=== PATIENT | female | born 1960 | race Caucasian/White ===

== ENCOUNTER 2024-04-13 10:21 | Outpatient (AMB) | payer BC, SELFPAY ==
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
[2024-04-13 10:40] VITALS: BP 138/68; PULSE 101; RESP 16; O2SAT 96; BMI 39.1
== END 2024-04-13 10:56 | disposition home or self-care (01) ==
PROVIDERS: PCP Nurse Practitioner Primary Care; Visit Provider Anesthesiology
DX: I87.2 Venous insufficiency (chronic) (peripheral) (principal); G58.8 Other specified mononeuropathies
CPT/HCPCS: 99203

== ENCOUNTER → 2024-04-13 10:21 | Outpatient (BNVA) | payer BC, SELFPAY | PROVIDERS: PCP Nurse Practitioner Primary Care; Visit Provider Anesthesiology ==

== ENCOUNTER 2024-06-09 10:13 | Outpatient (AMB) | payer BC, SELFPAY ==
[2024-06-09 10:20] VITALS: BMI 39.1
--- NOTE | 2024-06-09 10:20 | MHC.OFFVIS ---
Vital Signs 06/09/24 10:20 Height 5 ft 2 in Weight 214 lb BMI 39.1 Intake Visit Reasons: VEGETABLE PICKER/ Pain Mngmnt referral for chronic Intake Note: Pain Vito referral for LE pain, has hx of Left LE ligation (chemical) and Left LE ablation. Accompanied by: Self / Same As Patient Allergies azithromycin Allergy (Verified 06/09/24 10:31) Unknown naproxen [From Aleve] Allergy (Verified 06/09/24 10:31) Unknown sertraline [From Zoloft] Allergy (Verified 06/09/24 10:31) Unknown aspirin Adverse Reaction (Mild, Verified 06/09/24 10:31) Diarrhea HPI HPI VEGETABLE PICKER/ Pain Mngmnt referral for chronic : Details: Very pleasant 63-year-old female patient presents for painful varicose veins. Complaints include pain over varicosities, swelling of lower extremities, cramping, fatigue, and heaviness of the lower extremities. 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 It is noted more so in right leg. Of note she has been a diabetic for more than 10 years Patient reports prior venous ablation and sclerotherapy by Dr. Phelps Patient denies any history of DVT/ PE. Patient denies any history of phlebitis. Trial of compression includes - [id number] They now present for vascular evaluation regarding their varicose veins. Review of Systems Const Reports as per HPI ENT Reports no additional complaints Card Denies chest pain, Denies chest pain at rest and Denies chest pain with activity Resp Denies chest congestion and Denies cough GI Reports no additional complaints Musc Details: pain over varicosities, aching of lower extremities, swelling, cramping, heaviness and tiredness, itching Denies abnormal gait Skin/Breast Reports pruritus and Denies wounds Neuro Reports no additional complaints and Denies abnormal gait Psych Denies no additional complaints Physical Exam Vital Signs: BMI result Body Mass Index 39.1 Const General: cooperative, healthy appearing and comfortable Orientation/consciousness: oriented to person, oriented to place and oriented to time Neck Carotids: no bruits Chest Chest palpation & inspection: normal inspection of the chest and normal palpation of entire chest wall Resp Effort & Inspection: normal respiratory effort and able to speak in complete sentences Cardio Rate: regular rate Heart sounds: S1 normal heart sound present and S2 normal heart sound present Peripheral pulses: Peripheral pulses 2+ throughout GI Inspection: Yes normal to inspection Skin Other: +2 edema, large rope-like varicosities greater than 4 mm CEAP Classification C4 - skin color changes Ep - Etiology Primary As - superficial veins P - reflux General skin exam: dry skin Neuro General: oriented to person, oriented to place and oriented to time Extrem Right lower extremity: full ROM, normal capillary refill and edema Left lower extremity: full ROM, normal capillary refill and edema Psych Mental Status: mental status grossly normal Assessment & Plan Assessment & Plan (1) Varicose veins of left lower extremity with inflammation: Code(s): I83.12 - Varicose veins of left lower extremity with inflammation Category: Medical Plan: In short, the patient has evidence of venous insufficiency. I have discussed the pathophysiology with the patient. In addition I have provided informational material regarding venous disease to the patient. We have discussed conservative measures including compression, elevation, and exercise. I have also provided a handout regarding appropriate use of compression stockings and where to purchase good compression stockings as well. I have taken the liberty of ordering venous insufficiency testing with the patient to better assess if there is any reflux in the status her previous ablation. They will follow up with me after testing. The patient had an opportunity to ask questions regarding the treatment plan. All questions were answered. Imaging studies, laboratory studies and physical exam results were discussed and reviewed in detail. No major barriers to understanding were identified. The patient expressed understanding and agreement with the above treatment plan. The patient is aware they should contact our office by phone for worsening of the current condition or the appearance of new symptoms. Thank you for allowing me to participate in the vascular care of this patient. If you have any questions or concerns regarding the treatment for the above condition please do not hesitate to contact me. The office telephone contact is [phone]. This note is constructed using voice recognition software. While every effort has been made to ensure accuracy, push bench operator helper errors may have been included. Thank you for allowing me to participate in the care of your patient. Yours sincerely, Faraz Brown MD, FACS, R.P.V.I. Orders: Orders US venous duplex LE BI 1 Week I83.12 - Varicose veins of left lower extremity with inflammation Coding Level of Care Code Est Pt Level 4 (43597) Diagnoses Varicose veins of left lower extremity with inflammation I83.12
== END 2024-06-09 10:58 | disposition home or self-care (01) ==
PROVIDERS: PCP Nurse Practitioner Primary Care; Visit Provider Surgery Vascular Surgery
DX: I83.12 Varicose veins of left lower extremity with inflammation (principal)
CPT/HCPCS: 99214

== ENCOUNTER → 2024-06-09 10:13 | Outpatient (BNVA) | payer BC, SELFPAY | PROVIDERS: PCP Nurse Practitioner Primary Care; Visit Provider Surgery Vascular Surgery ==

== ENCOUNTER 2024-06-20 12:54 | Outpatient (REF) | payer BC, SELFPAY ==
--- NOTE | ~2024-06-20 | US_ITS ---
EXAMINATION: US LOWER EXTREMITY VENOUS (REFLUX EXAM), BILATERAL CLINICAL INDICATION: Chronic venous insufficiency with lower extremity varicose veins. History of left great saphenous vein stripping COMPARISON: None. TECHNIQUE: Color flow triplex imaging and compression Doppler was performed to evaluate both the deep and the superficial systems bilaterally. To evaluate the superficial system, the examination was performed in the upright position. Color-flow Doppler ultrasound and compression ultrasound were utilized. In addition, maneuvers were utilized to demonstrate reflux. FINDINGS: 1. DEEP VENOUS ULTRASOUND OF THE RIGHT LOWER EXTREMITY: Common Femoral Vein: Compressible, normal respiratory variation and augmented flow. Femoral Vein: Compressible, normal color flow and augmentation. Popliteal Vein: Compressible, normal augmentation. Deep Reflux: There is no evidence of reflux in the deep system in either the common femoral vein, superficial femoral or the popliteal vein. There is no evidence of a Pritchard's cyst. 2. SUPERFICIAL ULTRASOUND WITH DOPPLER OF RIGHT LOWER EXTREMITY: GREAT SAPHENOUS VEIN: Saphenofemoral Junction: 0.9 cm; Reflux: 892 ms Proximal Thigh: 0.7 cm; Reflux: 1472 ms Mid Thigh: 0.5 cm; Reflux: 1608 ms Above Knee: 0.7 cm; Reflux: 2692 ms At Knee: 0.6 cm; Reflux: 2576 ms Below Knee: 0.3 cm; Reflux: 1628 ms Mid Calf: 0.3 cm; Reflux: 1288 ms Ankle: 0.4 cm; Reflux: 720 ms DUPLICATED MEDIAL GREAT SAPHENOUS VEIN: Diameter: 0.4 cm Reflux: None DUPLICATED LATERAL GREAT SAPHENOUS VEIN: Diameter: None imaged Reflux: NA SMALL SAPHENOUS VEIN: Saphenopopliteal Junction: 0.2 cm; Reflux: 0 ms Proximal: 0.1 cm; Reflux: 0 ms Distal: 0.1 cm; Reflux: 0 ms VEIN OF GIACOMINI: Size: NA Reflux: NA PERFORATORS: Location: Distal calf Size: 0.4 cm Reflux: None VARICOSITIES: Location: Distal posterior calf of the small saphenous vein Size: 0.3 cm Reflux: 1152 ms VARICOSITIES: Location: Mid to distal thigh of the great saphenous vein Size: 0.4 cm Reflux: 1236 ms VARICOSITIES: Location: Proximal to mid calf off the right saphenous vein. A segment of the varicosity in the proximal calf is thrombosed Size: 0.3 to 0.8 cm Reflux: Ranging from 1224 ms to 2436 ms 3. DEEP VENOUS ULTRASOUND OF THE LEFT LOWER EXTREMITY: Common Femoral Vein: Compressible, normal respiratory variation and augmented flow. Femoral Vein: Compressible, normal color flow and augmentation. Popliteal Vein: Compressible, normal augmentation. Deep Reflux: There is no evidence of reflux in the deep system in either the common femoral vein, superficial femoral or the popliteal vein. There is no evidence of a Pritchard's cyst. 4. SUPERFICIAL ULTRASOUND WITH DOPPLER OF LEFT LOWER EXTREMITY: GREAT SAPHENOUS VEIN: Saphenofemoral Junction: 0.9 cm; Reflux: 0 ms Proximal Thigh: 0.3 cm; Reflux: 0 ms Mid Thigh: 0.2 cm; Reflux: 0 ms Above Knee: Not visualized At Knee: Not visualized Below Knee: Not visualized Mid Calf: Not visualized Ankle: Not visualized DUPLICATED MEDIAL GREAT SAPHENOUS VEIN: Diameter: None imaged Reflux: NA DUPLICATED LATERAL GREAT SAPHENOUS VEIN: Diameter: 0.7 cm Reflux: Ranging from 1576 ms to 2360 ms SMALL SAPHENOUS VEIN: Saphenopopliteal Junction: 0.2 cm; Reflux: 0 ms Proximal: 0.2 cm; Reflux: 0 ms Distal: 0.3 cm; Reflux: 0 ms VEIN OF GIACOMINI: Size: NA Reflux: NA PERFORATORS: Location: None imaged Size: NA Reflux: NA VARICOSITIES: Location: Proximal thigh off the anterior accessory saphenous vein Size: 0.4 cm Reflux: 1680 ms VARICOSITIES: Location: Medial knee and proximal calf. There is a segment of the varicosity in the proximal calf which is partially thrombosed Size: 0.3 to 0.5 cm Reflux: 2764 ms VARICOSITIES: Location: Anterior mid calf Size: 0.3 cm Reflux: None US/US venous duplex LE BI IMPRESSION: Right: Severe reflux throughout the entire right great saphenous vein with multiple branching varicosities as described above. There is a varicosity in the proximal calf which is thrombosed consistent with a focal thrombophlebitis Left: Status post vein stripping of the left great saphenous vein from the distal thigh through the calf. There is severe reflux and a lateral duplicated to great saphenous vein with multiple branching varicosities within the thigh. Multiple additional varicosities seen at the knee and calf. There is a varicosity in the proximal calf which is partially thrombosed consistent with focal thrombophlebitis Electronically signed by: Ghanshyam Moe MD 06/27/2024 04:17 PM EDT RP
== END 2024-06-20 12:55 | disposition home or self-care (01) ==
LOC: HO.US 12:54
PROVIDERS: PCP Nurse Practitioner Primary Care; Visit Provider Surgery Vascular Surgery
DX: I83.12 Varicose veins of left lower extremity with inflammation (principal)
CPT/HCPCS: 93970

== ENCOUNTER 2024-07-19 10:19 | Outpatient (AMB) | payer BC, SELFPAY ==
--- NOTE | 2024-07-19 10:23 | A.OFFVIS_ITS ---
Intake Visit Reasons: follow up 06/20/2024 Intake Note: Patient presents for follow up. Patient states she has a sensation on the inside and outside of her leg. States it is painful sometimes but then most times it feel like a zing . Accompanied by: Self / Same As Patient Allergies azithromycin Allergy (Verified 07/19/24 10:24) Unknown naproxen [From Aleve] Allergy (Verified 07/19/24 10:24) Unknown sertraline [From Zoloft] Allergy (Verified 07/19/24 10:24) Unknown aspirin Adverse Reaction (Mild, Verified 07/19/24 10:24) Diarrhea HPI HPI follow up 06/20/2024: Details: Very pleasant 63-year-old female presents for follow-up regarding venous disease. Of note she has a prior history of left great saphenous vein stripping and ablation. She reports that she has continued swelling and discomfort. 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 She has had a trial of compression stockings for greater than 3 months which has provided minimal relief. She now presents for follow-up with venous insufficiency testing. Review of Systems Const Reports as per HPI ENT Reports no additional complaints Card Denies chest pain, Denies chest pain at rest and Denies chest pain with activity Resp Denies chest congestion and Denies cough GI Reports no additional complaints Musc Details: pain over varicosities, aching of lower extremities, swelling, cramping, heaviness and tiredness, itching Denies abnormal gait Skin/Breast Reports pruritus and Denies wounds Neuro Reports no additional complaints and Denies abnormal gait Psych Denies no additional complaints Physical Exam Const General: cooperative, healthy appearing and comfortable Orientation/consciousness: oriented to person, oriented to place and oriented to time Neck Carotids: no bruits Chest Chest palpation & inspection: normal inspection of the chest and normal palpation of entire chest wall Resp Effort & Inspection: normal respiratory effort and able to speak in complete sentences Cardio Rate: regular rate Heart sounds: S1 normal heart sound present and S2 normal heart sound present Peripheral pulses: Peripheral pulses 2+ throughout GI Inspection: Yes normal to inspection Skin Other: +2 edema, large rope-like varicosities greater than 4 mm CEAP Classification C4 - skin color changes Ep - Etiology Primary As - superficial veins P - reflux General skin exam: dry skin Neuro General: oriented to person, oriented to place and oriented to time Extrem Right lower extremity: full ROM, normal capillary refill and edema Left lower extremity: full ROM, normal capillary refill and edema Psych Mental Status: mental status grossly normal Results Reviewed Results Reviewed: Brief summary of venous insufficiency testing is as follows: right great saphenous vein: Positive right small saphenous vein: negative right accessory vein: none present left great saphenous vein: negative left small saphenous vein: negative left accessory vein: none present Please note there is no evidence of any venous aneurysms or significant tortuosity Assessment & Plan Assessment & Plan (1) Varicose veins of right lower extremity with inflammation: Code(s): I83.11 - Varicose veins of right lower extremity with inflammation Category: Medical Plan: This patient has varicose veins with inflammation. They continue to be a source of discomfort for the patient. The patient has tried conservative treatment with compression, leg elevation and exercise program for over 3 months time. They have been compliant with all treatment. This has provided minimal relief for the patient. I do not anticipate this course of treatment will alter the underlying etiology. The patient has been scheduled for lower extremity venous treatment inclusive of --- right great saphenous vein Cyanoacralate ablation. Risks, benefits, and complications of this procedure has been discussed in detail with the patient including but not limited to bleeding, infection, and the development of a DVT. The patient has demonstrated a clear understanding and has consented. We will schedule the patient as soon as possible. Thank you for allowing us to participate in this patient's care. If there are any questions or concerns please do not hesitate to contact us. Coding Level of Care Code Est Pt Level 4 (72756) Diagnoses Varicose veins of right lower extremity with inflammation I83.11
== END 2024-07-19 10:51 | disposition home or self-care (01) ==
PROVIDERS: PCP Nurse Practitioner Primary Care; Visit Provider Surgery Vascular Surgery
DX: I83.11 Varicose veins of right lower extremity with inflammation (principal)
CPT/HCPCS: 99214

== ENCOUNTER → 2024-07-19 10:19 | Outpatient (BNVA) | payer BC, SELFPAY | PROVIDERS: PCP Nurse Practitioner Primary Care; Visit Provider Surgery Vascular Surgery ==

== ENCOUNTER 2024-08-19 10:22 | Outpatient (AMB) | payer BC, SELFPAY ==
[2024-08-19 10:39] VITALS: BMI 39.1
--- NOTE | 2024-08-19 10:39 | A.OFFVIS_ITS ---
Vital Signs 08/19/24 10:39 Height 5 ft 2 in Weight 214 lb BMI 39.1 Intake Visit Reasons: Right Leg Venaseal Accompanied by: Self / Same As Patient Allergies azithromycin Allergy (Verified 08/19/24 10:39) Unknown naproxen [From Aleve] Allergy (Verified 08/19/24 10:39) Unknown sertraline [From Zoloft] Allergy (Verified 08/19/24 10:39) Unknown aspirin Adverse Reaction (Mild, Verified 08/19/24 10:39) Diarrhea Physical Exam Vital Signs: BMI result Body Mass Index 39.1 Office Procedures Vascular Office Procedure Details Details: Diagnosis: Right Leg varicose veins with inflammation Procedure: Endovenous Ablation of the right Great Saphenous Vein with VenaSeal Closure System Anesthesia: Local infiltration 5 cc, Estimated Blood Loss: min Specimen: none Duplex ultrasound was used to map out the insufficient saphenous vein, and access was determined and marked on the overlying skin. The depth and diameter of the vein(s) to be treated was documented. The patient was placed supine on the procedure table and the leg was prepped and draped using sterile technique. Ultasound guidance was again used to localize the access site. 1% lidocaine was injected as a local anesthetic in the subcutaneous tissues at the target location in the GSV in the lower leg. Using ultrasound guidance, access was gained at this location with the 19 gauge thin walled access needle and followed by introduction of a short guidewire, location confirmed with ultrasound. A small, 3 mm incision was made at the access site to allow for introduction and placement of the 7 Fr x7cm introducer/dilator. The dilator and guidewire were removed. The 0.035 guidewire from the VenaSeal kit was then introduced and positioned at the saphenofemoral junction using ultrasound guidance. The 80 cm 7 Fr introducer sheath/dilator was positioned 5cm from the saphenofemoral junction. The guidewire and dilator were removed, and the remaining sheath was flushed with sterile saline, with the syringe remaining in place prior to the next steps. The cyanoacrylate adhesive was precisely primed into the 5 F delivery catheter and this catheter/syringe combination was attached within the dispenser gun. This assembly was introduced through the 7F sheath and positioned 5 cm caudal of the saphenofemoral junction under ultrasound guidance. The steps from the IFU were followed for dispensing amounts, locations and compression times, 2 aliq uots proximally with 3 minutes of compression, and 1 aliquot every 3 cm distally with 30 sec of compression along the course of the vessel. Following the last injection and compression sequence, the catheter and introducer sheath were pulled out from the access site. Hemostasis was achieved with manual compression and an adhesive bandage was applied to the incision. Ultrasound confirmed complete coaptation and closure of the treated segments of the GSV, and the absence of any DVT at the saphenofemoral junction. Treatment time was approximately 6 minutes and the vein length treated was 32 cm. The drapes were removed and the patient cleaned and prepared for discharge. Post op ultrasound check is scheduled for 48-72 hours and the patient was given written post-op instructions. [id number] - Endoven Ther Chem Adhes 1st All charges added?: Procedure code (CPT) selection complete Assessment & Plan Assessment & Plan (1) Varicose veins of right lower extremity with inflammation: Comment: 08/19/2024 - right great saphenous vein Cyanoacralate ablation Code(s): I83.11 - Varicose veins of right lower extremity with inflammation Category: Medical Plan: See op note Coding Level of Care Code Procedure Only Diagnoses Varicose veins of right lower extremity with inflammation I83.11 CPT Codes Details - Vascular 3: 88757 - Endoven Ther Chem Adhes 1st ([id number])
== END 2024-08-19 11:13 | disposition home or self-care (01) ==
PROVIDERS: PCP Nurse Practitioner Primary Care; Visit Provider Surgery Vascular Surgery
DX: I83.11 Varicose veins of right lower extremity with inflammation (principal)
CPT/HCPCS: 36482

== ENCOUNTER → 2024-08-19 10:22 | Outpatient (BNVA) | payer BC, SELFPAY | PROVIDERS: PCP Nurse Practitioner Primary Care; Visit Provider Surgery Vascular Surgery | DX: I83.11 Varicose veins of right lower extremity with inflammation (principal) | CPT/HCPCS: 36482; J2003 ==

== ENCOUNTER 2024-08-22 11:21 | Outpatient (REF) | payer BC, SELFPAY ==
--- NOTE | ~2024-08-22 | US_ITS ---
EXAMINATION: TRIPLEX SCANNING OF RIGHT LOWER EXTREMITY; SUPERFICIAL ULTRASOUND WITH DOPPLER OF RIGHT LOWER EXTREMITY CLINICAL INFORMATION: Status post Venaseal of the right great saphenous vein COMPARISON: preprocedure studies. TECHNIQUE: Color flow triplex imaging and compression Doppler were performed as well as superficial ultrasound with Doppler. FINDINGS: RIGHT LOWER EXTREMITY DEEP VENOUS SYSTEM: Respiratory variation, normal compression and augmented flow are noted throughout the lower extremity. The visualized common femoral vein, femoral vein, profunda femoral vein, popliteal vein and the calf veins show no evidence of deep venous thrombosis. There is no evidence of Pritchard's cyst. SUPERFICIAL VENOUS SYSTEM: The great saphenous vein is partially occluded from the access site to just before the saphenofemoral junction. There is no extension of thrombus into the deep system. US/US venous duplex LE RT IMPRESSION: No evidence of DVT. Electronically signed by: Peyton Clarke MD 08/22/2024 12:03 PM EDT
== END 2024-08-22 11:22 | disposition home or self-care (01) ==
LOC: HO.US 11:21
PROVIDERS: PCP Nurse Practitioner Primary Care; Visit Provider Surgery Vascular Surgery
DX: M79.604 Pain in right leg (principal)
CPT/HCPCS: 93971

== ENCOUNTER 2024-09-06 10:20 | Outpatient (AMB) | payer BC, SELFPAY ==
--- NOTE | 2024-09-06 10:26 | A.OFFVIS_ITS ---
Vital Signs 09/06/24 10:27 Height 5 ft 2 in Weight 214 lb BMI 39.1 Intake Visit Reasons: 2w follow up s/p R venaseal Intake Note: 2 week follow up Right GSV Venaseal 08/19/24. Pt states she does get some tenderness over the treated area at times but it comes and goes. Accompanied by: Self / Same As Patient Allergies azithromycin Allergy (Verified 09/06/24 10:29) Unknown naproxen [From Aleve] Allergy (Verified 09/06/24 10:29) Unknown sertraline [From Zoloft] Allergy (Verified 09/06/24 10:29) Unknown aspirin Adverse Reaction (Mild, Verified 09/06/24 10:29) Diarrhea HPI HPI 2w follow up s/p R venaseal: Details: Very pleasant 64-year-old female presents for follow-up status post right great saphenous vein ablation. She reports she is doing extremely well with that and has seen significant improvement with that. Her biggest concern is her left lower extremity. She has an area in the ankle which has this healed ulcer which is still quite tender for her. She has a history venous ablation on the left lo wer extremity. She now presents for follow-up evaluation. Review of Systems Const Reports as per HPI ENT Reports no additional complaints Card Denies chest pain, Denies chest pain at rest and Denies chest pain with activity Resp Denies chest congestion and Denies cough GI Reports no additional complaints Musc Details: pain over varicosities, aching of lower extremities, swelling, cramping, heaviness and tiredness, itching Denies abnormal gait Skin/Breast Reports pruritus and Denies wounds Neuro Reports no additional complaints and Denies abnormal gait Psych Denies no additional complaints Physical Exam Vital Signs: BMI result Body Mass Index 39.1 Const General: cooperative, healthy appearing and comfortable Orientation/consciousness: oriented to person, oriented to place and oriented to time Neck Carotids: no bruits Chest Chest palpation & inspection: normal inspection of the chest and normal palpation of entire chest wall Resp Effort & Inspection: normal respiratory effort and able to speak in complete sentences Cardio Rate: regular rate Heart sounds: S1 normal heart sound present and S2 normal heart sound present Peripheral pulses: Peripheral pulses 2+ throughout GI Inspection: Yes normal to inspection Skin Other: +2 edema, large rope-like varicosities greater than 4 mm left calf, healed ulcer on the medial portion of the left ankle and calf CEAP Classification C5 - healed ulcer Ep - Etiology Primary As - superficial veins P - reflux General skin exam: dry skin Neuro General: oriented to person, oriented to place and oriented to time Extrem Right lower extremity: full ROM, normal capillary refill and edema Left lower extremity: full ROM, normal capillary refill and edema Psych Mental Status: mental status grossly normal Results Reviewed Results Reviewed: Brief summary of venous insufficiency testing is as follows: right great saphenous vein: Ablated right small saphenous vein: negative right accessory vein: none present left great saphenous vein: Ablated left small saphenous vein: Negative left accessory vein: Anterior positive for reflux Please note there is no evidence of any venous aneurysms or significant tortuosity Assessment & Plan Assessment & Plan (1) Varicose veins of left lower extremity with inflammation: Code(s): I83.12 - Varicose veins of left lower extremity with inflammation Category: Medical Plan: This patient has varicose veins with inflammation. They continue to be a source of discomfort for the patient. The patient has tried conservative treatment with compression, leg elevation and exercise program for over 3 months time. They have been compliant with all treatment. This has provided minimal relief for the patient. I do not anticipate this course of treatment will alter the underlying etiology. The patient has been scheduled for lower extremity venous treatment inclusive of --- right anterior great saphenous vein Cyanoacralate ablation. Risks, benefits, and complications of this procedure has been discussed in detail with the patient including but not limited to bleeding, infection, and the development of a DVT. The patient has demonstrated a clear understanding and has consented. We will schedule the patient as soon as possible. Thank you for allowing us to participate in this patient's care. If there are any questions or concerns please do not hesitate to contact us. Coding Level of Care Code Est Pt Level 4 (02250) Diagnoses Varicose veins of left lower extremity with inflammation I83.12
[2024-09-06 10:27] VITALS: BMI 39.1
== END 2024-09-06 10:42 | disposition home or self-care (01) ==
LOC: HO.HVS 10:21
PROVIDERS: PCP Nurse Practitioner Primary Care; Visit Provider Surgery Vascular Surgery
DX: I83.12 Varicose veins of left lower extremity with inflammation (principal)
CPT/HCPCS: 99214

== ENCOUNTER 2024-11-04 10:04 | Outpatient (AMB) | payer BC, SELFPAY ==
[2024-11-04 10:45] VITALS: BMI 39.1
--- NOTE | 2024-11-04 10:45 | A.OFFVIS_ITS ---
Vital Signs 11/04/24 10:45 Height 5 ft 2 in Weight 214 lb BMI 39.1 Intake Visit Reasons: Left GSV Venaseal Accompanied by: Self / Same As Patient Allergies azithromycin Allergy (Verified 11/04/24 10:46) Unknown naproxen [From Aleve] Allergy (Verified 11/04/24 10:46) Unknown sertraline [From Zoloft] Allergy (Verified 11/04/24 10:46) Unknown aspirin Adverse Reaction (Mild, Verified 11/04/24 10:46) Diarrhea Physical Exam Vital Signs: BMI result Body Mass Index 39.1 Office Procedures Vascular Office Procedure Details Details: Diagnosis: Left Leg varicose veins with inflammation Procedure: Endovenous Ablation of the left anterior saphenous vein with VenaSeal Closure System Anesthesia: Local infiltration 5 cc, Estimated Blood Loss: min Specimen: none Duplex ultrasound was used to map out the insufficient saphenous vein, and access was determined and marked on the overlying skin. The depth and diameter of the vein(s) to be treated was documented. The patient was placed supine on the procedure table and the leg was prepped and draped using sterile technique. Ultasound guidance was again used to localize the access site. 1% lidocaine was injected as a local anesthetic in the subcutaneous tissues at the target location in the GSV in the lower leg. Using ultrasound guidance, access was gained at this location with the 19 gauge thin walled access needle and followed by introduction of a short guidewire, location confirmed with ultrasound. A small, 3 mm incision was made at the access site to allow for introduction and placement of the 7 Fr x7cm introducer/dilator. The dilator and guidewire were removed. The 0.035 guidewire from the VenaSeal kit was then introduced and positioned at the saphenofemoral junction using ultrasound guidance. The 80 cm 7 Fr introducer sheath/dilator was positioned 5cm from the saphenofemoral junction. The guidewire and dilator were removed, and the remaining sheath was flushed with sterile saline, with the syringe remaining in place prior to the next steps. The cyanoacrylate adhesive was precisely primed into the 5 F delivery catheter and this catheter/syringe combination was attached within the dispenser gun. This assembly was introduced through the 7F sheath and positioned 5 cm caudal of the saphenofemoral junction under ultrasound guidance. The steps from the IFU were followed for dispensing amounts, locations and compression times, 2 aliq uots proximally with 3 minutes of compression, and 1 aliquot every 3 cm distally with 30 sec of compression along the course of the vessel. Following the last injection and compression sequence, the catheter and introducer sheath were pulled out from the access site. Hemostasis was achieved with manual compression and an adhesive bandage was applied to the incision. Ultrasound confirmed complete coaptation and closure of the treated segments of the GSV, and the absence of any DVT at the saphenofemoral junction. Treatment time was approximately 4 minutes and the vein length treated was 10 cm. The drapes were removed and the patient cleaned and prepared for discharge. Post op ultrasound check is scheduled for 48-72 hours and the patient was given written post-op instructions. 64118 - Endoven Ther Chem Adhes 1st All charges added?: Procedure code (CPT) selection complete Assessment & Plan Assessment & Plan (1) Varicose veins of left lower extremity with inflammation: Comment: 11/04/2024 - left anterior saphenous vein ablation Code(s): I83.12 - Varicose veins of left lower extremity with inflammation Category: Medical Plan: See op note Coding Level of Care Code Procedure Only Diagnoses Varicose veins of left lower extremity with inflammation I83.12 CPT Codes Details - Vascular 3: 43031 - Endoven Ther Chem Adhes 1st ([id number])
== END 2024-11-04 13:38 | disposition home or self-care (01) ==
PROVIDERS: PCP Nurse Practitioner Primary Care; Visit Provider Surgery Vascular Surgery
DX: I83.12 Varicose veins of left lower extremity with inflammation (principal)
CPT/HCPCS: 36482

== ENCOUNTER → 2024-11-04 10:04 | Outpatient (BNVA) | payer BC, SELFPAY | PROVIDERS: PCP Nurse Practitioner Primary Care; Visit Provider Surgery Vascular Surgery | DX: I83.12 Varicose veins of left lower extremity with inflammation (principal) | CPT/HCPCS: 36482; J2003 ==

== ENCOUNTER 2024-11-17 10:22 | Outpatient (AMB) | payer BC, SELFPAY ==
[2024-11-17 10:28] VITALS: BMI 39.1
--- NOTE | 2024-11-17 10:28 | MHC.OFFVIS ---
Vital Signs 11/17/24 10:28 Height 5 ft 2 in Weight 214 lb BMI 39.1 Intake Visit Reasons: 2 wk follow up Left GSV Venaseal 11/04/24 Intake Note: 2 wk follow up Left GSV Venaseal 11/04/24 and Hx of Right GSV Venaseal 08/19/24. Pt also has Hx of Left Vein stripping, ablation and sclerotherapy by . Pt states she still has some large VV Accompanied by: Self / Same As Patient Allergies azithromycin Allergy (Verified 11/17/24 10:32) Unknown naproxen [From Aleve] Allergy (Verified 11/17/24 10:32) Unknown sertraline [From Zoloft] Allergy (Verified 11/17/24 10:32) Unknown aspirin Adverse Reaction (Mild, Verified 11/17/24 10:32) Diarrhea HPI HPI 2 wk follow up Left GSV Venaseal 11/04/24: Details: Very pleasant 64-year-old female presents for routine follow-up status post left great saphenous vein Cyanoacralate ablation. She reports no postprocedure issues. Overall pain and discomfort seemed to have improved. She notes that some of the superficial varicosities in the left calf have decreased in size as well. She now presents for routine follow-up. Review of Systems Const Reports as per HPI ENT Reports no additional complaints Card Denies chest pain, Denies chest pain at rest and Denies chest pain with activity Resp Denies chest congestion and Denies cough GI Reports no additional complaints Musc Details: pain over varicosities, aching of lower extremities, swelling, cramping, heaviness and tiredness, itching Denies abnormal gait Skin/Breast Reports pruritus and Denies wounds Neuro Reports no additional complaints and Denies abnormal gait Psych Denies no additional complaints Physical Exam Vital Signs: BMI result Body Mass Index 39.1 Const General: cooperative, healthy appearing and comfortable Orientation/consciousness: oriented to person, oriented to place and oriented to time Neck Carotids: no bruits Chest Chest palpation & inspection: normal inspection of the chest and normal palpation of entire chest wall Resp Effort & Inspection: normal respiratory effort and able to speak in complete sentences Cardio Rate: regular rate Heart sounds: S1 normal heart sound present and S2 normal heart sound present Peripheral pulses: Peripheral pulses 2+ throughout GI Inspection: Yes normal to inspection Skin Other: +2 edema, large rope-like varicosities greater than 4 mm left calf CEAP Classification C4 - skin color changes Ep - Etiology Primary As - superficial veins P - reflux General skin exam: dry skin Neuro General: oriented to person, oriented to place and oriented to time Extrem Right lower extremity: full ROM, normal capillary refill and edema Left lower extremity: full ROM, normal capillary refill and edema Psych Mental Status: mental status grossly normal Assessment & Plan Assessment & Plan (1) Varicose veins of left lower extremity with inflammation: Comment: 11/04/2024 - left anterior saphenous vein ablation Code(s): I83.12 - Varicose veins of left lower extremity with inflammation Category: Medical Plan: In short patient has done well with venous ablation TPatient's may often experience postprocedure phlebitic episodes and I have discussed with the patient use of warm compresses and NSAIDS if tolerated for pain discomfort. In addition, I have discussed continued conservative measures including use of compression, leg elevation, and exercise. The patient was also given an information sheet regarding appropriate use of compression stockings and future purchases. She does have some left calf superficial varicosities that at the current time she would like to manage conservatively. We will follow her up in approximately 3 months time to consider microphlebectomy at that point. Thank you for allowing us to assist in her care. If there are any questions or concerns please do not hesitate to contact us Coding Level of Care Code Est Pt Level 3 (80549) Diagnoses Varicose veins of left lower extremity with inflammation I83.12
== END 2024-11-17 10:46 | disposition home or self-care (01) ==
PROVIDERS: PCP Nurse Practitioner Primary Care; Visit Provider Surgery Vascular Surgery
DX: I83.12 Varicose veins of left lower extremity with inflammation (principal)
CPT/HCPCS: 99213

== ENCOUNTER → 2024-11-17 10:22 | Outpatient (BNVA) | payer BC, SELFPAY | PROVIDERS: PCP Nurse Practitioner Primary Care; Visit Provider Surgery Vascular Surgery ==